=== PATIENT | male | born 1995 | race Caucasian/White ===

== ENCOUNTER 2017-04-24 17:51 | Emergency (ER) | payer MEDICAID, OTHER ==
[~2017-04-24] VITALS: Ht 182.9 cm; Wt 90.5 kg
[2017-04-24 17:56] VITALS: Ht 182.9 cm; Wt 90.5 kg
--- NOTE | 2017-04-24 19:37 | ERA ---
ER Documentation Chief Complaint Date/Time DATE: 04/24/17 TIME: 19:31 Chief Complaint abdominal pain x 1 week and hemorrhoids x 1 year HPI 21-year-old male with history of hemorrhoids presenting with a chief complaint of left-sided abdominal discomfort for the past 2 years that is exacerbated over the past 2-4 days. Describes the discomfort as crampy as if someone was grabbing onto his bowels and twisting them. Worse with stretching abdominal area. Patient takes workout supplements which he thinks might be part of the cause. Describes diarrhea with no specific characteristics other than mild blood which is not unusual due to his hemorrhoids. Patient denies fever, chills , nausea, vomiting, headache, meningismus. Patient has not taken any medications to relieve the symptoms. Patient has no other complaints and describes no other associated manifestations. Nursing notes have been reviewed and are consistent with history given. ROS All systems reviewed and are negative except as per history of present illness. Allergies Allergies: Coded Allergies: No Known Allergy (Unverified , 04/24/17) PMhx/Soc Medical and Surgical Hx: pt denies Medical Hx, pt denies Surgical Hx Hx Alcohol Use: No Hx Substance Use: No Hx Tobacco Use: No Smoking Status: Never smoker Physical Exam Vitals Vital Signs Date Time Temp Pulse Resp B/P Pulse Ox O2 Delivery O2 Flow Rate FiO2 04/24/17 17:56 98.0 82 18 139/80 98 Physical Exam Const: Well-appearing. No acute distress. Head: Normocephalic, Atraumatic. Eyes: Non-injected; No discharge. EOMI and LASHELL bilaterally. Ears: Normal External Ears, EACs clear, TM normal bilaterally without erythema. Nose: Normal external nose; no discharge, or sinus tenderness. Oral: No oral edema visualized. Mucous membranes moist and pink. Neck: No cervical lymphadenopathy, or masses palpated. Supple ~ No meningismus. Pulm: Good air movement in upper and lower respiratory tracts. Clear to auscultation bilaterally. No dyspnea or stridor. Cardio: Regular rate and rhythm; No murmurs, gallops or rubs auscultated. Radia pulses 2+ bilaterally. No cyanosis noted. Capillary refill less than 2 seconds. Abd: Normal bowel sounds. Soft, non tender, non distended. No McBurney point tenderness. No palpable sigmoid colon. MS: Normal motor strength, normal tone with gross examination. Skin: No petechiae or rashes. Good turgor. Back: No midline, flank or CVA tenderness. Ext: No edema. Normal movement of all extremities grossly observed. Neur: Neurovascularly intact bilaterally. Psych: Normal Mood and Affect. Results 24 hrs Laboratory Tests Test 04/24/17 19:54 Bedside Urine pH (LAB) 6.0 Bedside Urine Protein (LAB) Negative Bedside Urine Glucose (UA) Negative Bedside Urine Ketones (LAB) Negative Bedside Urine Blood Negative Bedside Urine Nitrite (LAB) Negative Bedside Urine Leukocyte Esterase (L Negative Procedures/MDM 21-year-old male presenting with a chief complaint of abdominal discomfort as described in history and physical examination. Patient has a history of hemorrhoids which is most likely the cause of the blood in his stool which she states is not anything new. Signs and symptoms are most consistent with irritable bowel syndrome versus abdominal pain of unknown origin. Urinalysis was obtained to rule out nephrolithiasis. Urine results for the following: Unremarkable. At this time I do not suspect testicular torsion, hernia, appendicitis, intestinal ischemia, AAA, mechanical obstruction, prostatitis, or epididymitis. On repeat exam, the abdomen remained unremarkable. The patient is well appearing , and tolerates PO. I have spoke with the patient regarding their condition and future management. They have verbally responded that they understand their status and treatment plan. The patients vitals are stable, and their current condition is appropriate for discharge. The patient will be given discharge instructions with return precautions. Departure Diagnosis: Primary Impression: Abdominal pain Qualified Code: R10.32 - Left lower quadrant pain Condition: Stable Additional Instructions: Follow up with your PCP within the next 1-3 days for a more thorough evaluation and a possible referral to a specialist. Return the the emergency department immediately if symptoms worsen or change. If you have any questions regarding medications, ask your pharmacist or us before you leave. If any adverse reactions occur while taking your medications, discontinue the treatment and return to the emergency department immediately. Take your medications as directed, and complete the entire course of treatment. PATRICE JACKSON PA-C Apr 24, 2017 19:37
[2017-04-24 19:48] LABS: URINE BLOOD (Dip) POC Negative (NEGATIVE)
== END 2017-04-24 20:15 | disposition home or self-care (01) ==
LOC: FTE 17:51
DX: R10.32 Left lower quadrant pain (principal)
CPT/HCPCS: 81003; Z7502; 99282